=== PATIENT | male | born 1985 | race Caucasian/White ===

== ENCOUNTER 2019-12-26 15:36 | Emergency (ER) | payer BC, OTHER ==
[~2019-12-26] VITALS: Ht 177.8 cm; Wt 122.7 kg
--- NOTE | 2019-12-26 16:00 | ED Chest Pain ---
General Chief Complaint: Chest Pain Stated Complaint: POSITIVE FOR COVID 12/11, CP Source: patient Exam Limitations: no limitations History of Present Illness Date Seen by Provider: Dec 26, 2019 Time Seen by Provider: 15:55 Initial Comments To ER with reports of chest pain and some remittent sharp left lower leg pain. This pain is to the proximal portion of the tibia anterior and laterally. The chest pain is also sharp and prevented him from laying on his side last night because doing so caused an increase in the pain. He was positive for coronavirus on 12/12/19 and has subsequently been released from quarantine on 12/23/19. He states that his course was fairly simple and involved mostly sinus symptoms. He had an infrequent cough and no shortness of breath currently or at any time. No fevers. He is concerned that he may have a blood clot. He did take an aspirin at noon today. He is a nonsmoker. 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: No NTG SL [employer]IV[employer] COMMANDER DEPUT[employer] SHERIFF: No Associated Symptoms: No shortness of breath Allergies and Home Medications Allergies Coded Allergies: No Known Drug Allergies (Unverified , 05/01/11) Patient Home Medication List Home Medication List Reviewed: Yes Review of Systems Review of Systems Constitutional: see HPI EENTM: No Symptoms Reported Respiratory: No Symptoms Reported Cardiovascular: See HPI, Chest Pain Genitourinary: No Symptoms Reported Musculoskeletal: see HPI Skin: no symptoms reported Psychiatric/Neurological: No Symptoms Reported Endocrine: No Symptoms Reported Past Jwwbvav-Tsuohp-Xqdnrl Hx Patient Social History Recent Foreign Travel: No Contact w/Someone Who Travel: No Physical Exam Vital Signs Vital Signs - First Documented 12/26/19 15:45 Temp 35.8 Pulse 90 Resp 18 B/P (MAP) 156/99 (118) Pulse Ox 99 O2 Delivery Room Air Capillary Refill : Height, Weight, BMI Height: '" Weight: lbs. oz. kg; BMI Method:Stated General Appearance: No Apparent Distress, WD/WN, Obese, Other (alert and oriented. He is not tachycardic with a heart rate in the 90s. He is not hypoxic with an oxygen saturation of 99% on room air. He is afebrile.) Neck: Full Range of Motion, Normal Inspection Respiratory: Chest Non Tender, No Accessory Muscle Use, No Respiratory Distress Cardiovascular: Regular Rate, Rhythm, Normal Peripheral Pulses Gastrointestinal: Normal Bowel Sounds, Non Tender, Soft Extremity: Normal Capillary Refill, Normal Inspection, Other (no swelling no erythema. pain is confined to a half dolalr sized area of proximal lower leg just lateral to tibial tuberosity. ) Neurologic/Psychiatric: Alert, Oriented x3 Skin: Normal Color, Warm/Dry Progress/Results/Core Measures Results/Orders Lab Results Laboratory Tests Test 12/26/19 15:50 Range/Units White Blood Count 11.3 H 4.3-11.0 10^3/uL Red Blood Count 5.17 4.30-5.52 10^6/uL Hemoglobin 15.8 13.3-17.7 g/dL Hematocrit 46 40-54 % Mean Corpuscular Volume 89 80-99 fL Mean Corpuscular Hemoglobin 31 25-34 pg Mean Corpuscular Hemoglobin Concent 34 32-36 g/dL Red Cell Distribution Width 12.6 10.0-14.5 % Platelet Count 327 130-400 10^3/uL Mean Platelet Volume 10.2 9.0-12.2 fL Immature Granulocyte % (Auto) 2 % Neutrophils (%) (Auto) 60 42-75 % Lymphocytes (%) (Auto) 26 12-44 % Monocytes (%) (Auto) 10 0-12 % Eosinophils (%) (Auto) 2 0-10 % Basophils (%) (Auto) 0 0-10 % Neutrophils # (Auto) 6.8 1.8-7.8 10^3/uL Lymphocytes # (Auto) 2.9 1.0-4.0 10^3/uL Monocytes # (Auto) 1.1 H 0.0-1.0 10^3/uL Eosinophils # (Auto) 0.3 0.0-0.3 10^3/uL Basophils # (Auto) 0.0 0.0-0.1 10^3/uL Immature Granulocyte # (Auto) 0.2 H 0.0-0.1 10^3/uL D-Dimer 0.31 0.00-0.49 UG/ML Sodium Level 141 135-145 MMOL/L Potassium Level 3.9 3.6-5.0 MMOL/L Chloride Level 104 98-107 MMOL/L Carbon Dioxide Level 24 21-32 MMOL/L Anion Gap 13 5-14 MMOL/L Blood Urea Nitrogen 17 7-18 MG/DL Creatinine 1.35 H 0.60-1.30 MG/DL Estimat Glomerular Filtration Rate 60 BUN/Creatinine Ratio 13 Glucose Level 90 70-105 MG/DL Calcium Level 9.8 8.5-10.1 MG/DL Corrected Calcium 8.5-10.1 MG/DL Total Bilirubin 0.9 0.1-1.0 MG/DL Aspartate Amino Transf (AST/SGOT) 28 5-34 U/L Alanine Aminotransferase (ALT/SGPT) 56 H 0-55 U/L Alkaline Phosphatase 45 40-136 U/L Troponin I < 0.028 <0.028 NG/ML C-Reactive Protein High Sensitivity 0.10 0.00-0.50 MG/DL Total Protein 7.7 6.4-8.2 GM/DL Albumin 4.6 H 3.2-4.5 GM/DL My Orders Orders - AIDEN AGOSTO APRN Cbc With Automated Diff (12/26/19 15:54) Hs C Reactive Protein (12/26/19 15:54) Fibrin Degradation Products (12/26/19 15:54) Comprehensive Metabolic Panel (12/26/19 15:54) Ed Iv/Invasive Line Start (12/26/19 15:54) Troponin I (12/26/19 15:54) Ekg Tracing (12/26/19 15:54) Chest 1 View, Ap/Pa Only (12/26/19 15:54) Ns Iv 1000 Ml (Sodium Chloride 0.9%) (12/26/19 16:30) Procalcitonin (Pct) (12/26/19 16:32) Vital Signs/I&O 12/26/19 12/26/19 15:45 15:45 Temp 35.8 Pulse 90 Resp 18 B/P (MAP) 156/99 (118) Pulse Ox 99 O2 Delivery Room Air Room Air Departure Communication (Admissions) NAME: SEDRICKFREDDY MED REC#: [id number] PT STATUS: REG ER : 1985 PHYSICIAN: AIDEN AGOSTO APRN ADMIT DATE: 12/26/19/ER Draft Date of Exam:12/26/19 CHEST 1 VIEW, AP/PA ONLY EXAMINATION: Chest 1 view HISTORY: Chest pain, COVID COMPARISON: None available. FINDINGS: There are vague right middle and lower zone airspace opacities. No pneumothorax. No pleural effusion. Heart size is normal for portable technique. IMPRESSION: 1. Vague mid and right lower zone airspace opacities in the right consistent with reported history of COVID 19. Dictated on workstation # [id number] Dict: 12/26/19 1624 Trans: 12/26/19 1626 CVB [id number] Interpreted by: CHUY VELASQUEZ MD Electronically signed by: Impression Primary Impression: Costochondral chest pain Disposition: 01 HOME, SELF-CARE Condition: Stable Departure-Patient Inst. Decision time for Depature: 17:08 Referrals: NO,LOCAL PHYSICIAN (PCP/Family) Primary Care Physician Patient Instructions: Costochondritis Add. Discharge Instructions: 1. Return to ER for any concerns 2. Follow-up with your doctor next week. All discharge instructions reviewed with patient and/or family. Voiced understanding. AIDEN AGOSTO ORNAMENTAL METAL WORKER HELPER Dec 26, 2019 16:00
[2019-12-26 16:14] LABS: BASOPHILS % (AUTO) 0 % (0-10); EOSINOPHILS # (AUTO) 0.3 10^3/uL (0.0-0.3); EOSINOPHILS % (AUTO) 2 % (0-10); HEMATOCRIT 46 % (40-54); HEMOGLOBIN 15.8 g/dL (13.3-17.7); LYMPHOCYTES # (AUTO) 2.9 10^3/uL (1.0-4.0); LYMPHOCYTES % (AUTO) 26 % (12-44); MEAN CORPUSCULAR HEMOGLOBIN 31 pg (25-34); MEAN CORPUSCULAR HGB CONC 34 g/dL (32-36); MEAN CORPUSCULAR VOLUME 89 fL (80-99); MEAN PLATELET VOLUME 10.2 fL (9.0-12.2); MONOCYTES # (AUTO) 1.1 10^3/uL (0.0-1.0); MONOCYTES % (AUTO) 10 % (0-12); NEUTROPHILS # (AUTO) 6.8 10^3/uL (1.8-7.8); NEUTROPHILS % (AUTO) 60 % (42-75); PLATELET COUNT 327 10^3/uL (130-400); WHITE BLOOD COUNT 11.3 10^3/uL (4.3-11.0)
[2019-12-26 16:25] LABS: ALANINE AMINOTRANSFERASE 56 U/L (0-55); ALBUMIN 4.6 GM/DL (3.2-4.5); ALKALINE PHOSPHATASE 45 U/L (40-136); BILIRUBIN,TOTAL 0.9 MG/DL (0.1-1.0); BUN/CREATININE RATIO 13; CALCIUM 9.8 MG/DL (8.5-10.1); CARBON DIOXIDE 24 MMOL/L (21-32); CHLORIDE 104 MMOL/L (98-107); CREATININE SERUM 1.35 MG/DL (0.60-1.30); GFR ESTIMATED 60; GLUCOSE 90 MG/DL (70-105); POTASSIUM 3.9 MMOL/L (3.6-5.0); SODIUM 141 MMOL/L (135-145); TOTAL PROTEIN 7.7 GM/DL (6.4-8.2)
--- NOTE | 2019-12-26 16:26 | Diagnostic Imaging Report ---
EXAMINATION: Chest 1 view HISTORY: Chest pain, COVID COMPARISON: None available. FINDINGS: There are vague right middle and lower zone airspace opacities. No pneumothorax. No pleural effusion. Heart size is normal for portable technique. IMPRESSION: 1. Vague mid and right lower zone airspace opacities in the right consistent with reported history of COVID 19. Dictated by: Dictated on workstation # [id number]
[2019-12-26] MEDS ORDERED: NS IV 1000 ML 1,000 ML IV SCH (16:30)
[2019-12-26 17:39] VITALS: BP 134/86
--- NOTE | 2019-12-26 17:39 | NUR ---
Pt unable to sign d/c instructions d/t PUI status. Pt verbalized understanding of d/c instructions et voices no questions or concerns.
== END 2019-12-26 17:39 | disposition home or self-care (01) ==
LOC: EDUNIT# 15:36 → ER 15:38
DX: R07.89 Other chest pain (principal); E66.9 Obesity, unspecified
CPT/HCPCS: 36415; 71045; 80053; 84145; 84484; 85025; 85379; 86141

== ENCOUNTER 2020-05-18 09:28 | Emergency (ER) | payer BC ==
[~2020-05-18] VITALS: Ht 170 cm; Wt 102.0 kg
[2020-05-18 09:35] VITALS: BP 125/73
[2020-05-18] MEDS ORDERED: BUTA1CAP41 (09:51)
--- NOTE | 2020-05-18 09:59 | ED Abdominal Pain ---
General Chief Complaint: Abdominal/GI Problems Stated Complaint: ABD CRAMPING Nursing Triage Note: RIGHT LOWER ABD CRAMPING X1 HOUR. X1 LIQUID CLEAR STOOL. STATES HE JUST FINISHED AMOXICILLIN FOR A SINUS INFECTION. Sepsis Screen: No Definite Risk Source of Information: Patient Exam Limitations: No Limitations History of Present Illness Date Seen by Provider: May 18, 2020 Time Seen by Provider: 09:45 Initial Comments Patient is a 34-year-old male who presents to the emergency department with a chief complaint of lower abdominal pain onset this morning after he got up. Patient states it was a sharp and stabbing pain that made him sweaty. Patient states that he was nauseous when the pain was at its peak. He states he had more intense pain when he was sitting and standing than when he was laying down. Patient states he was unable to work secondary to the pain. He did not take any medications for the pain, Tylenol or ibuprofen. Patient states that shortly after the pain started he had an urge to have a bowel movement but states all that he could pass was "water". He denies any burning with urination, increased frequency or urgency. No recent fevers or chills. He just finished a round of amoxicillin for a sinus infection a day or 2 ago. All other review of systems reviewed and negative except as stated. Timing/Duration: 1 Hour Severity/Quality: Severe, Aching Location: Suprapubic Radiation: No Radiation Activities at Onset: None Modifying Factors: Improves With Defecating Associated Symptoms: Denies Symptoms Allergies and Home Medications Allergies Coded Allergies: No Known Drug Allergies (Unverified , 05/01/11) Home Medications No Active Prescriptions or Reported Meds Patient Home Medication List Home Medication List Reviewed: Yes Review of Systems Review of Systems Constitutional: see HPI EENTM: No Symptoms Reported Respiratory: No Symptoms Reported Cardiovascular: No Symptoms Reported Gastrointestinal: Abdominal Pain, Diarrhea Genitourinary: No Symptoms Reported Musculoskeletal: no symptoms reported Skin: no symptoms reported All Other Systems Reviewed Negative Unless Noted: Yes Past Upiswks-Fiwjmv-Bsjrkk Hx Patient Social History 2nd Hand Smoke Exposure: No Recent Infectious Disease Expo: No Recent Hopitalizations: No Seasonal Allergies Seasonal Allergies: No Past Medical History Surgeries: Yes Orthopedic Respiratory: No Cardiac: No Neurological: No Genitourinary: No Gastrointestinal: No Musculoskeletal: No Endocrine: No HEENT: No Cancer: No Psychosocial: No Integumentary: No Blood Disorders: No Physical Exam Vital Signs Vital Signs - First Documented 05/18/20 09:35 Temp 35.3 Pulse 83 Resp 16 B/P (MAP) 125/73 (90) Pulse Ox 97 O2 Delivery Room Air Capillary Refill : Less Than 3 Seconds Height/Weight/BMI Height: '" Weight: lbs. oz. kg; 35.00 BMI Method:Stated General Appearance: WD/WN, no apparent distress HEENT: PERRL/EOMI Respiratory: lungs clear, normal breath sounds, no respiratory distress, no accessory muscle use Cardiovascular: regular rate, rhythm Gastrointestinal: non tender, soft, other (No reproducible abdominal tenderness. No palpable ventral hernia defects; patient is examined both lying down and standing) Extremities: normal inspection Skin: normal color, diaphoresis Progress/Results/Core Measures Results/Orders Lab Results Laboratory Tests Test 05/18/20 09:55 Range/Units Urine Color YELLOW Urine Clarity CLEAR Urine pH 6.0 5-9 Urine Specific [place] 1.025 H 1.016-1.022 Urine Protein NEGATIVE NEGATIVE Urine Glucose (UA) NEGATIVE NEGATIVE Urine Ketones NEGATIVE NEGATIVE Urine Nitrite NEGATIVE NEGATIVE Urine Bilirubin NEGATIVE NEGATIVE Urine Urobilinogen 0.2 < = 1.0 MG/DL Urine Leukocyte Esterase NEGATIVE NEGATIVE Urine RBC (Auto) NEGATIVE NEGATIVE Urine RBC RARE /HPF Urine WBC RARE /HPF Urine Crystals NONE /LPF Urine Bacteria NEGATIVE /HPF Urine Casts NONE /LPF Urine Mucus NEGATIVE /LPF Urine Culture Indicated NO My Orders Orders - RANDAL CLARK MD Ua Culture If Indicated (05/18/20 09:55) Vital Signs/I&O 05/18/20 09:35 Temp 35.3 Pulse 83 Resp 16 B/P (MAP) 125/73 (90) Pulse Ox 97 O2 Delivery Room Air Blood Pressure Mean: 90 Progress Progress Note : Time: 10:34 Progress Note Patient reevaluated after urinalysis. States that he is having a little bit of cramping coming back that he thinks is just related to the diarrhea. Patient states that he did eat some [employer] pizza in the last day or so and this may be the etiology of his cramps and diarrhea. Patient is treated in the emergency department with 20 mg of Bentyl p.o. He is advised to use [id number] Imodium as needed for cramping and diarrhea. He verbalizes understanding. All questions have been sought and answered. Patient stable for discharge. Departure Impression Primary Impression: Abdominal pain Qualified Codes: R10.30 - Lower abdominal pain, unspecified Additional Impression: Diarrhea Qualified Codes: R19.7 - Diarrhea, unspecified Disposition: 01 HOME, SELF-CARE Condition: Stable Departure-Patient Inst. Decision time for Depature: 10:35 Referrals: NO,LOCAL PHYSICIAN (PCP/Family) Primary Care Physician Patient Instructions: Diarrhea, Adult ED Add. Discharge Instructions: Drink plenty of fluids to stay well-hydrated. Take [id number]-pvextrp Imodium to help control your diarrhea. Ibuprofen or Tylenol as needed for cramping. Return to the emergency room for fever, passing blood in your stool, diarrhea that is not controlled with Imodium or any other emergent concerning symptoms. All discharge instructions reviewed with patient and/or family. Voiced understanding. Scripts No Active Prescriptions or Reported Meds RANDAL CLARK MD May 18, 2020 09:59
[2020-05-18 10:00] LABS: BILIRUBIN,URINE NEGATIVE (NEGATIVE); CLARITY,URINE CLEAR; COLOR,URINE YELLOW; GLUCOSE, URINE (UA) NEGATIVE (NEGATIVE); KETONES,URINE NEGATIVE (NEGATIVE); LEUKOCYTE ESTERASE ,URINE NEGATIVE (NEGATIVE); NITRITE,URINE NEGATIVE (NEGATIVE); PROTEIN,URINE NEGATIVE (NEGATIVE)
[2020-05-18 10:09] LABS: BACTERIA,URINE NEGATIVE /HPF; RBC,URINE RARE /HPF; WBC,URINE RARE /HPF
[2020-05-18] MEDS ORDERED: DICYCLOMINE 10 MG (BENTYL) CAP PO SCH (10:45)
== END 2020-05-18 10:50 | disposition home or self-care (01) ==
LOC: EDUNIT# 09:28 → ER 09:29
DX: R10.30 Lower abdominal pain, unspecified (principal); R19.7 Diarrhea, unspecified
CPT/HCPCS: 81000

== ENCOUNTER 2020-12-13 13:04 | Outpatient (CLI) | payer BC ==
[~2020-12-13 13:04] MED LIST: BUTA1CAP41
== END 2020-12-13 13:20 ==
LOC: SLEEP 13:04
PROVIDERS: ATTEND Otolaryngology Otolaryngology/Facial Plastic Surgery
DX: G47.33 Obstructive sleep apnea (adult) (pediatric) (principal); I10 Essential (primary) hypertension
CPT/HCPCS: G0399

== ENCOUNTER 2020-12-30 02:45 | Emergency (ER) | payer BC ==
[~2020-12-30] VITALS: Ht 177 cm; Wt 127.0 kg
[2020-12-30] MEDS ORDERED: hydrALAZINE (APESOLINE) 20 MG/ML VIAL IV ONE (03:30)
[2020-12-30 03:36] LABS: BASOPHILS % (AUTO) 0 % (0-10); EOSINOPHILS # (AUTO) 0.3 10^3/uL (0.0-0.3); EOSINOPHILS % (AUTO) 3 % (0-10); HEMATOCRIT 45 % (40-54); HEMOGLOBIN 15.4 g/dL (13.3-17.7); LYMPHOCYTES % (AUTO) 34 % (12-44); MEAN CORPUSCULAR HEMOGLOBIN 30 pg (25-34); MEAN CORPUSCULAR HGB CONC 34 g/dL (32-36); MEAN CORPUSCULAR VOLUME 89 fL (80-99); MONOCYTES # (AUTO) 0.8 10^3/uL (0.0-1.0); MONOCYTES % (AUTO) 9 % (0-12); NEUTROPHILS # (AUTO) 4.6 10^3/uL (1.8-7.8); NEUTROPHILS % (AUTO) 53 % (42-75); PLATELET COUNT 309 10^3/uL (130-400); WHITE BLOOD COUNT 8.8 10^3/uL (4.3-11.0)
[2020-12-30 03:43] LABS: ALBUMIN 4.6 GM/DL (3.2-4.5)
[2020-12-30 03:44] LABS: CHLORIDE 105 MMOL/L (98-107); SODIUM 140 MMOL/L (135-145)
[2020-12-30 03:45] LABS: CALCIUM 9.2 MG/DL (8.5-10.1)
[2020-12-30 03:46] LABS: GLUCOSE 99 MG/DL (70-105); TOTAL PROTEIN 7.3 GM/DL (6.4-8.2)
[2020-12-30 03:47] LABS: CARBON DIOXIDE 20 MMOL/L (21-32)
[2020-12-30 03:48] LABS: BILIRUBIN,TOTAL 0.9 MG/DL (0.1-1.0)
[2020-12-30 03:49] LABS: ALKALINE PHOSPHATASE 47 U/L (40-136)
[2020-12-30 03:50] LABS: CREATININE SERUM 1.41 MG/DL (0.60-1.30); GFR ESTIMATED 57
[2020-12-30 03:51] LABS: BUN/CREATININE RATIO 11
[2020-12-30 03:52] LABS: ALANINE AMINOTRANSFERASE 101 U/L (0-55)
[2020-12-30 03:54] LABS: CREATINE KINASE 320 U/L (30-200)
--- NOTE | 2020-12-30 04:17 | ED General ---
General Chief Complaint: General Problems/Pain Stated Complaint: NUMBNESS ALL OVER BODY Nursing Triage Note: PT ARRIVES TO ER WITH C/O FEELING NUMB AND TINGLY ALL OVER. PT SAID IT WOKE HIM UP FROM SLEEPING. PT SAID BEFORE BED HE WAS HAVING L ARM PAIN THAT FELT DULL AND ACHEY Source of Information: Patient Exam Limitations: No Limitations History of Present Illness Date Seen by Provider: Dec 30, 2020 Allergies and Home Medications Allergies Coded Allergies: No Known Drug Allergies (Unverified , 05/01/11) Patient Home Medication List No Active Prescriptions or Reported Meds Past Crowglk-Zsbrwh-Cnggbq Hx Patient Social History Tobacco Use?: No Use of E-Cig and/or Vaping dev: No Substance use?: No Alcohol Use?: No Pt feels they are or have been: No Immunizations Up To Date Influenza Vaccine Up-to-Date: No; Not Current Seasonal Allergies Seasonal Allergies: No Past Medical History Surgeries: Yes Orthopedic Respiratory: No Cardiac: No Neurological: No Genitourinary: No Gastrointestinal: No Musculoskeletal: No Endocrine: No HEENT: No Cancer: No Psychosocial: No Integumentary: No Blood Disorders: No Physical Exam Vital Signs Vital Signs - First Documented 12/30/20 03:04 Temp 36.8 Pulse 94 Resp 18 B/P (MAP) 159/105 (123) Pulse Ox 97 Capillary Refill : Less Than 3 Seconds Height, Weight, BMI Height: '" Weight: lbs. oz. kg; 40.00 BMI Method:Stated Progress/Results/Core Measures Suspected Sepsis SIRS Temperature: Pulse: 94 Respiratory Rate: 18 Laboratory Tests 12/30/20 03:30: White Blood Count 8.8 Blood Pressure 159 /105 Mean: 123 Laboratory Tests 12/30/20 03:30: Creatinine 1.41H, Platelet Count 309, Total Bilirubin 0.9 Results/Orders Lab Results Laboratory Tests Test 12/30/20 03:30 Range/Units White Blood Count 8.8 4.3-11.0 10^3/uL Red Blood Count 5.08 4.30-5.52 10^6/uL Hemoglobin 15.4 13.3-17.7 g/dL Hematocrit 45 40-54 % Mean Corpuscular Volume 89 80-99 fL Mean Corpuscular Hemoglobin 30 25-34 pg Mean Corpuscular Hemoglobin Concent 34 32-36 g/dL Red Cell Distribution Width 12.1 10.0-14.5 % Platelet Count 309 130-400 10^3/uL Mean Platelet Volume 10.0 9.0-12.2 fL Immature Granulocyte % (Auto) 0 % Neutrophils (%) (Auto) 53 42-75 % Lymphocytes (%) (Auto) 34 12-44 % Monocytes (%) (Auto) 9 0-12 % Eosinophils (%) (Auto) 3 0-10 % Basophils (%) (Auto) 0 0-10 % Neutrophils # (Auto) 4.6 1.8-7.8 10^3/uL Lymphocytes # (Auto) 3.0 1.0-4.0 10^3/uL Monocytes # (Auto) 0.8 0.0-1.0 10^3/uL Eosinophils # (Auto) 0.3 0.0-0.3 10^3/uL Basophils # (Auto) 0.0 0.0-0.1 10^3/uL Immature Granulocyte # (Auto) 0.0 0.0-0.1 10^3/uL Sodium Level 140 135-145 MMOL/L Potassium Level 4.0 3.6-5.0 MMOL/L Chloride Level 105 98-107 MMOL/L Carbon Dioxide Level 20 L 21-32 MMOL/L Anion Gap 15 H 5-14 MMOL/L Blood Urea Nitrogen 16 7-18 MG/DL Creatinine 1.41 H 0.60-1.30 MG/DL Estimat Glomerular Filtration Rate 57 BUN/Creatinine Ratio 11 Glucose Level 99 70-105 MG/DL Calcium Level 9.2 8.5-10.1 MG/DL Corrected Calcium 8.5-10.1 MG/DL Magnesium Level 2.0 1.6-2.4 MG/DL Total Bilirubin 0.9 0.1-1.0 MG/DL Aspartate Amino Transf (AST/SGOT) 46 H 5-34 U/L Alanine Aminotransferase (ALT/SGPT) 101 H 0-55 U/L Alkaline Phosphatase 47 40-136 U/L Total Creatine Kinase 320 H 30-200 U/L Total Protein 7.3 6.4-8.2 GM/DL Albumin 4.6 H 3.2-4.5 GM/DL My Orders Orders - MARTHA BIRMINGHAM MD Ed Iv/Invasive Line Start (12/30/20 03:24) Cbc With Automated Diff (12/30/20 03:24) Comprehensive Metabolic Panel (12/30/20 03:24) Creatine Kinase (12/30/20 03:24) Magnesium (12/30/20 03:24) Vital Signs/I&O 12/30/20 03:04 Temp 36.8 Pulse 94 Resp 18 B/P (MAP) 159/105 (123) Pulse Ox 97 Capillary Refill : Less Than 3 Seconds Blood Pressure Mean: 123 Departure Impression Primary Impression: Painful paresthesia Disposition: 01 HOME, SELF-CARE Condition: Improved Departure-Patient Inst. Decision time for Depature: 04:14 Referrals: NO,LOCAL PHYSICIAN (PCP/Family) Primary Care Physician Patient Instructions: Paresthesia (DC) Add. Discharge Instructions: The exact cause of your pain and numbness is uncertain. A problem with the spine or central nervous system may be a contributing factor. Please follow-up with your primary care provider for further evaluation. Imaging studies such as MRI of the head and/or neck may be appropriate. For pain you may try taking Tylenol and/or ibuprofen. Return to the emergency room promptly if you develop worsening symptoms, especially if those symptoms include weakness of an extremity, loss of control of an extremity, numbness of the groin, or bowel or bladder dysfunction. Call with questions or concerns. All discharge instructions reviewed with patient and/or family. Voiced understanding. Scripts No Active Prescriptions or Reported Meds MARTHA BIRMINGHAM MD Dec 30, 2020 04:17
[2020-12-30 04:25] VITALS: BP 148/94
== END 2020-12-30 04:27 | disposition home or self-care (01) ==
LOC: EDUNIT# 02:45 → ER 02:47
DX: R20.2 Paresthesia of skin (principal)
CPT/HCPCS: 36415; 80053; 82550; 83735; 85025

== ENCOUNTER → 2021-01-03 | Outpatient (CLI) | payer BC ==
--- NOTE | 2021-01-03 16:32 | Diagnostic Imaging Report ---
EXAMINATION: CT abdomen and pelvis without contrast. TECHNIQUE: Multiple contiguous axial images were obtained through the abdomen and pelvis without the use of intravenous contrast. All CT scans use one or more of the following dose optimizing techniques: Automated exposure control, MA and/or KvP adjustment based on patient size and exam type or iterative reconstruction. HISTORY: Left lower quadrant pain. COMPARISON: None available. FINDINGS: Limited views of the lower thorax are unremarkable. The liver is normal without focal lesion. There is no biliary ductal dilation. Gallbladder is normal. Pancreas is normal. Spleen is normal. There is a 10 x 14 mm left adrenal adenoma. The kidneys are normal. There is no hydronephrosis. Urinary bladder is normal. Visualized bowel is normal in caliber without obstruction or inflammation. The appendix is normal. No free fluid or air. No abdominal or pelvic lymphadenopathy. Aorta is normal in caliber without aneurysm. There are no suspicious osseous lesions. IMPRESSION: 1. No acute abnormality in the abdomen or pelvis. Dictated by: Dictated on workstation # [id number]
== END ==
LOC: RAD 16:15
PROVIDERS: ATTEND Nurse Practitioner Family
DX: R10.32 Left lower quadrant pain (principal)
CPT/HCPCS: 74176

== ENCOUNTER → 2021-09-26 | Outpatient (CLI) | payer BC ==
--- NOTE | 2021-09-26 13:17 | Diagnostic Imaging Report ---
INDICATION: Enlarged lymph nodes. TECHNIQUE: Multiple Real-time grayscale sonographic images were obtained of the soft tissues of the neck. CORRELATION STUDY: None. FINDINGS: Imaging of the left aspect of the neck demonstrates several very small cervical lymph nodes to be present. The largest measures up to 1.2 x 0.8 x 0.3 cm. An additional one is measuring 1 cm or less. IMPRESSION: The palpable abnormality corresponds but appears to be small and nonspecific cervical lymph nodes. Dictated by: Dictated on workstation # [id number]
== END ==
LOC: RAD 10:00
PROVIDERS: ATTEND Internal Medicine
DX: R59.0 Localized enlarged lymph nodes (principal)
CPT/HCPCS: 76536

== ENCOUNTER → 2022-01-26 | Outpatient (CLI) | payer BC ==
--- NOTE | 2022-01-26 16:57 | Diagnostic Imaging Report ---
INDICATION: RIGHT FOOT PAIN COMPARISON: None. FINDINGS: 3 views of the right foot demonstrate no acute fracture or dislocation. There are no focal osseous lesions. There is no soft tissue swelling. Joint spaces are well maintained. No radiopaque foreign bodies are seen. IMPRESSION: No acute fractures or dislocations of the right foot. Dictated by: Dictated on workstation # [id number]
== END ==
LOC: RAD 09:44
PROVIDERS: ATTEND Nurse Practitioner Community Health
DX: M79.671 Pain in right foot (principal)
CPT/HCPCS: 73630

== ENCOUNTER 2022-04-02 11:51 | Emergency (ER) | payer BC ==
[~2022-04-02] VITALS: Ht 177.8 cm; Wt 136.0 kg
[2022-04-02 12:49] LABS: BASOPHILS % (AUTO) 0 % (0-10); EOSINOPHILS # (AUTO) 0.2 10^3/uL (0.0-0.3); EOSINOPHILS % (AUTO) 3 % (0-10); HEMATOCRIT 49 % (40-54); LYMPHOCYTES # (AUTO) 1.6 10^3/uL (1.0-4.0); LYMPHOCYTES % (AUTO) 21 % (12-44); MEAN CORPUSCULAR HEMOGLOBIN 31 pg (25-34); MEAN CORPUSCULAR HGB CONC 35 g/dL (32-36); MEAN CORPUSCULAR VOLUME 88 fL (80-99); MEAN PLATELET VOLUME 10.1 fL (9.0-12.2); MONOCYTES # (AUTO) 0.6 10^3/uL (0.0-1.0); MONOCYTES % (AUTO) 8 % (0-12); NEUTROPHILS # (AUTO) 5.1 10^3/uL (1.8-7.8); NEUTROPHILS % (AUTO) 67 % (42-75); PLATELET COUNT 320 10^3/uL (130-400); WHITE BLOOD COUNT 7.5 10^3/uL (4.3-11.0)
[2022-04-02 13:02] LABS: ALBUMIN 4.9 GM/DL (3.2-4.5); CHLORIDE 104 MMOL/L (98-107); POTASSIUM 4.1 MMOL/L (3.6-5.0); SODIUM 140 MMOL/L (135-145)
[2022-04-02 13:03] LABS: CALCIUM 9.9 MG/DL (8.5-10.1); INR 0.9 (0.8-1.4); PROTHROMBIN TIME PATIENT 12.4 SEC (12.2-14.7)
[2022-04-02 13:04] LABS: GLUCOSE 99 MG/DL (70-105)
[2022-04-02 13:05] LABS: CARBON DIOXIDE 22 MMOL/L (21-32)
[2022-04-02 13:06] LABS: BILIRUBIN,TOTAL 1.7 MG/DL (0.1-1.0)
--- NOTE | 2022-04-02 13:07 | Diagnostic Imaging Report ---
INDICATION: Chest pain COMPARISON: 12/26/2019 TECHNIQUE: Single radiograph of the chest dated 04/02/2022. FINDINGS: The cardiac silhouette is within normal limits in size. No significant pulmonary vascular congestion. The lungs are clear of focal pulmonary opacity. No pleural effusion. No pneumothorax. No acute osseous abnormality. IMPRESSION: No acute cardiopulmonary abnormality. Dictated by: Dictated on workstation # [id number]
[2022-04-02 13:08] LABS: ALKALINE PHOSPHATASE 45 U/L (40-136); CREATININE SERUM 1.33 MG/DL (0.60-1.30); GFR ESTIMATED 71
[2022-04-02 13:09] LABS: BUN/CREATININE RATIO 11
[2022-04-02 13:11] LABS: ALANINE AMINOTRANSFERASE 78 U/L (0-55)
--- NOTE | 2022-04-02 13:30 | ED Chest Pain ---
General Chief Complaint: Cardiac/General Problems Stated Complaint: PALPITATIONS Nursing Triage Note: PT AMB TO [facility] 2 WITH COMPLAINT OF PALPITATIONS. STATES STARTED LAST NIGHT AND HAVE NOT GONE AWAY. SAID HE HAS HADTHEM IN THE PAST, BUT HAVE NOT LASTED THIS LONG. STATES LAST NIGHT HE HAD EPIGASTRIC PAIN AND THOUGHT IT COULD BE INDIGESTION. PT STATES HE HAS BEEN HAVING LEFT CALF PAIN AND HAS BEEN ON ANTI INFLAMMATORIES FOR THAT. Source: patient Exam Limitations: no limitations History of Present Illness Date Seen by Provider: Apr 02, 2022 Time Seen by Provider: 12:13 Initial Comments This 36-year-old gentleman presents to the emergency room with primary complaint of palpitations. He also experienced some chest pain in the central chest yesterday. The palpitations he described today are a fluttering sensation. He is noted to have occasional PVCs on the monitor and does associate those with his palpitations. He reports having difficulty managing a left calf muscle and Achilles tendon injury over the past several weeks. He denies any history of cardiac or pulmonary problems. Symptoms do seem to be more prevalent when he is laying down. Allergies and Home Medications Allergies Coded Allergies: No Known Drug Allergies (Unverified , 05/01/11) Patient Home Medication List Home Medication List Reviewed: Yes No Active Prescriptions or Reported Meds Review of Systems Review of Systems Constitutional: no symptoms reported EENTM: No Symptoms Reported Respiratory: No Symptoms Reported Cardiovascular: See HPI Gastrointestinal: See HPI Genitourinary: No Symptoms Reported Musculoskeletal: no symptoms reported Skin: no symptoms reported Psychiatric/Neurological: No Symptoms Reported Endocrine: No Symptoms Reported Hematologic/Lymphatic: No Symptoms Reported Past Zzqokqa-Bnxhoz-Wuutrl Hx Patient Social History Tobacco Use?: No Use of E-Cig and/or Vaping dev: No Substance use?: No Alcohol Use?: No Pt feels they are or have been: No Seasonal Allergies Seasonal Allergies: No Past Medical History Surgeries: Yes Orthopedic (jaw) Respiratory: No Cardiac: Yes Hypertension (not treated as of 03/2022) Neurological: No Genitourinary: No Gastrointestinal: No Musculoskeletal: No Endocrine: No HEENT: No Cancer: No Psychosocial: No Integumentary: No Blood Disorders: No Physical Exam Vital Signs Vital Signs - First Documented 04/02/22 11:59 Pulse 96 Resp 18 B/P (MAP) 148/105 (119) Pulse Ox 98 O2 Delivery Room Air Capillary Refill : Less Than 3 Seconds Height, Weight, BMI Height: '" Weight: lbs. oz. kg; 43.00 BMI Method:Stated General Appearance: No Apparent Distress, WD/WN, Obese HEENT: PERRL/EOMI, Normal ENT Inspection Neck: Normal Inspection; No JVD Respiratory: Chest Non Tender, Lungs Clear, Normal Breath Sounds, No Accessory Muscle Use Cardiovascular: Regular Rate, Rhythm, No Edema, No Murmur Gastrointestinal: Normal Bowel Sounds, Soft, Tenderness (Slight in the epigastrium) Extremity: Normal Inspection, No Pedal Edema, Calf Tenderness (left calf and Achilles tendon) Neurologic/Psychiatric: Alert, Oriented x3, No Motor/Sensory Deficits, Normal Mood/Affect Skin: Normal Color, Warm/Dry Progress/Results/Core Measures Results/Orders Lab Results Laboratory Tests Test 04/02/22 12:39 Range/Units White Blood Count 7.5 4.3-11.0 10^3/uL Red Blood Count 5.53 H 4.30-5.52 10^6/uL Hemoglobin 17.0 13.3-17.7 g/dL Hematocrit 49 40-54 % Mean Corpuscular Volume 88 80-99 fL Mean Corpuscular Hemoglobin 31 25-34 pg Mean Corpuscular Hemoglobin Concent 35 32-36 g/dL Red Cell Distribution Width 12.1 10.0-14.5 % Platelet Count 320 130-400 10^3/uL Mean Platelet Volume 10.1 9.0-12.2 fL Immature Granulocyte % (Auto) 0 % Neutrophils (%) (Auto) 67 42-75 % Lymphocytes (%) (Auto) 21 12-44 % Monocytes (%) (Auto) 8 0-12 % Eosinophils (%) (Auto) 3 0-10 % Basophils (%) (Auto) 0 0-10 % Neutrophils # (Auto) 5.1 1.8-7.8 10^3/uL Lymphocytes # (Auto) 1.6 1.0-4.0 10^3/uL Monocytes # (Auto) 0.6 0.0-1.0 10^3/uL Eosinophils # (Auto) 0.2 0.0-0.3 10^3/uL Basophils # (Auto) 0.0 0.0-0.1 10^3/uL Immature Granulocyte # (Auto) 0.0 0.0-0.1 10^3/uL Prothrombin Time 12.4 12.2-14.7 SEC INR Comment 0.9 0.8-1.4 Activated Partial Thromboplast Time 30 24-35 SEC D-Dimer < 0.27 0.00-0.49 UG/ML Sodium Level 140 135-145 MMOL/L Potassium Level 4.1 3.6-5.0 MMOL/L Chloride Level 104 98-107 MMOL/L Carbon Dioxide Level 22 21-32 MMOL/L Anion Gap 14 5-14 MMOL/L Blood Urea Nitrogen 15 7-18 MG/DL Creatinine 1.33 H 0.60-1.30 MG/DL Estimat Glomerular Filtration Rate 71 BUN/Creatinine Ratio 11 Glucose Level 99 70-105 MG/DL Calcium Level 9.9 8.5-10.1 MG/DL Corrected Calcium 8.5-10.1 MG/DL Magnesium Level 2.0 1.6-2.4 MG/DL Total Bilirubin 1.7 H 0.1-1.0 MG/DL Aspartate Amino Transf (AST/SGOT) 36 H 5-34 U/L Alanine Aminotransferase (ALT/SGPT) 78 H 0-55 U/L Alkaline Phosphatase 45 40-136 U/L Myoglobin 59.3 10.0-92.0 NG/ML Troponin I < 0.028 <0.028 NG/ML Total Protein 8.0 6.4-8.2 GM/DL Albumin 4.9 H 3.2-4.5 GM/DL My Orders Orders - MARTHA BIRMINGHAM MD Cbc With Automated Diff (04/02/22 12:13) Magnesium (04/02/22 12:13) Chest 1 View, Ap/Pa Only (04/02/22 12:13) Ekg Tracing (04/02/22 12:13) Comprehensive Metabolic Panel (04/02/22 12:13) Myoglobin Serum (04/02/22 12:13) Protime With Inr (04/02/22 12:13) Partial Thromboplastin Time (04/02/22 12:13) O2 (04/02/22 12:13) Monitor-Rhythm Ecg Trace Only (04/02/22 12:13) Ed Iv/Invasive Line Start (04/02/22 12:13) Fibrin Degradation Products (04/02/22 12:13) Troponin I [place] (04/02/22 12:13) Vital Signs/I&O 04/02/22 04/02/22 11:59 13:41 Pulse 96 89 Resp 18 16 B/P (MAP) 148/105 (119) 145/89 Pulse Ox 98 98 O2 Delivery Room Air Room Air Blood Pressure Mean: 119 Progress Progress Note : Progress Note Cardiac work-up was pursued including CBC, CMP, troponin, and EKG. All of these were reviewed by me. D-dimer was also included to screen for possible thrombosis related to his calf injury. No significant abnormalities were identified. Chest x-ray report was reviewed. Chest pain is atypical in nature and it may be related to GI etiology. Patient was provided with advice regarding treatment and reduction of possible GI sources. Blood pressure was a lso addressed and he was advised to have this followed by an outpatient provider and seek treatment if persistent. He was given reassurance regarding the PVCs. See discharge instructions for further discussion. Initial ECG Impression Date: Apr 02, 2022 Initial ECG Impression Time: 12:35 Initial ECG Rate: 93 Initial ECG Rhythm: Normal Sinus Initial ECG Intervals: Normal Initial ECG Impression: Normal Comment Normal sinus rhythm with no ischemic ST elevation or depression. LVH by a utomated read. No abnormal intervals. Diagnostic Imaging Diagonstic Imaging: Xray Plain Films/CT/US/NM/MRI: chest Comments NAME: FREDDY DUBOSE [facility] REC#: [id number] PT STATUS: REG ER : 1985 PHYSICIAN: MARTHA BIRMINGHAM MD ADMIT DATE: 04/02/22/ER Draft Date of Exam:04/02/22 CHEST 1 VIEW, AP/PA ONLY INDICATION: Chest pain COMPARISON: 12/26/2019 TECHNIQUE: Single radiograph of the chest dated 04/02/2022. FINDINGS: The cardiac silhouette is within normal limits in size. No significant pulmonary vascular congestion. The lungs are clear of focal pulmonary opacity. No pleural effusion. No pneumothorax. No acute osseous abnormality. IMPRESSION: No acute cardiopulmonary abnormality. Dictated on workstation # [id number] Dict: 04/02/22 1248 Trans: 04/02/22 1307 CV [id number] Interpreted by: JUDIT ALMANZAR MD Departure Impression Primary Impression: Atypical chest pain Additional Impressions: Palpitations Hypertension Qualified Codes: I10 - Essential (primary) hypertension PVCs (premature ventricular contractions) Disposition: 01 HOME, SELF-CARE Condition: Stable Departure-Patient Inst. Decision time for Depature: 13:27 Referrals: NO,LOCAL PHYSICIAN (PCP/Family) Primary Care Physician Patient Instructions: Chest Pain, Palpitations ED Add. Discharge Instructions: The palpitations you are feeling are likely related to PVCs (preventricular contractions) noted on the cardiac exercise physiologist in the emergency room. These premature contractions are not in and of themselves dangerous. If you notice them with increasing frequency to the extent they are occurring every third or fourth beat, return to care for further evaluation. Stimulants such as caffeine, energy drinks, dietary supplements, decongestant medications, ADHD medications, etc. may increase frequency of PVCs. Avoid these substances. Your upper abdominal and chest pain may be related to acid reflux. You should take an antiacid medication such as Pepcid (famotidine) 20 mg twice daily or omeprazole 20 mg daily for the next couple of weeks. Also avoid the following: Eating large meals, eating close to bedtime, caffeine, carbonation, citrus fruits and juices, tomato products, chocolate, mints, spicy foods, fatty greasy foods, alcohol, tobacco, NSAID medications such as ibuprofen or naproxen, or anything else you know irritate your stomach. Your increased use of anti-inflammatory medications (NSAIDs) for your calf injury may be worsen ing acid reflux and stomach irritation. Try Tylenol instead and use NSAIDs as little as possible. If you must take NSAIDs, take with food or milk to help buffer your stomach. Establish with a primary care provider soon as possible to further discuss these issues. For acute treatment of chest or abdominal pain, you may take Tylenol (acetaminophen) up to 1000 mg every 6 hours as needed and/or Tums. Return to the ER if you have worsening symptoms. All discharge instructions reviewed with patient and/or family. Voiced understanding. Scripts No Active Prescriptions or Reported Meds MARTHA BIRMINGHAM MD Apr 02, 2022 13:30
[2022-04-02 13:41] VITALS: BP 145/89
== END 2022-04-02 13:41 | disposition home or self-care (01) ==
LOC: EDUNIT# 11:51 → ER 11:52
DX: I10 Essential (primary) hypertension (principal); I49.3 Ventricular premature depolarization
CPT/HCPCS: 36415; 71045; 80053; 83735; 83874; 84484; 85025; 85379; 85610; 85730; 93005; 93041

== ENCOUNTER → 2022-08-25 | Outpatient (CLI) | payer BC | LOC: CARD 08:56 | PROVIDERS: ATTEND Internal Medicine Cardiovascular Disease | DX: I25.10 Atherosclerotic heart disease of native coronary artery without angina pectoris (principal); I10 Essential (primary) hypertension | CPT/HCPCS: 93306 ==

== ENCOUNTER → 2022-09-25 | Outpatient (CLI) | payer BC ==
[2022-09-25 10:09] VITALS: BP 154/89
--- NOTE | 2022-09-25 12:02 | Cardiology Stress Test Report ---
Stress Test Report Date of Procedure/Referring: Date of Procedure: Sep 25, 2022 PCP No,Local Physician Admitting Physician Admitting Physician: Attending Physician: Lynne Atkinson MD Baseline Heart Rate: 86 Baseline Blood Pressure: Blood Pressure Systolic: 154 Blood Pressure Diastolic: 89 Baseline EKG: Baseline EKG: NSR Summary/Conclusion: Summary: In summary, the patient started exercising with a baseline heart rate, blood pressure and EKG mentioned above Patient was able to exercise for a total of 9 minutes on Filipe protocol, METs 10.5 Maximum heart rate 161 Maximum blood pressure 242/119 Stress EKG, Minimal nondiagnostic changes Recovery EKG , Return to baseline Conclusion: 1. Good exercise tolerance for a total of 9 minutes on Filipe protocol, 10.5 METs, achieving 87 percent of maximum expected heart rate 2. Minimal nondiagnostic EKG changes with exercise returned to baseline during recovery 3. No arrhythmia was noted LYNNE ATKINSON MD Sep 25, 2022 12:02
== END ==
LOC: CARD 10:00
PROVIDERS: ATTEND Internal Medicine Cardiovascular Disease
DX: I10 Essential (primary) hypertension (principal); I25.10 Atherosclerotic heart disease of native coronary artery without angina pectoris
CPT/HCPCS: 93017